=== PATIENT | female | born 1960 | race Caucasian/White ===

== ENCOUNTER → 2020-05-09 | Outpatient (CLI) | payer BC ==
[~2020-05-09] VITALS: Ht 165.1 cm; Wt 59.0 kg
[~2020-05-09] MED LIST: ADVIL200 M3 PO; ALEVE PM CAPLE1 EACH PO; BENADRYL25 MG PO; RELAFEN500 M1 PO; TYLENOL325 M1 PO
[2020-05-09 10:25] VITALS: BP 111/77
--- NOTE | 2020-05-09 10:41 | NUR ---
Pain Clinic Assessment: 1. History of Osteoarthritis: LUMBAR SPINE HIPS History of Rheumatoid Arthritis: Not Applicable 2. Height: 5 ft. 5 in. 165.1 cm. Weight: 130.0 lb. oz. 58.968 kg. Patient's BMI: 21.6 3. Vital Signs: BP: 111/77 Pulse: 86 Resp: 14 Temp: 02 Sat: 99 ECG Mon: 4. Pain Intensity: 8-9 5. Fall Risk: Dizziness: N Needs help standing or walking: N Fallen in the last 3 months: Y Fall risk comments: 6. Patient on Blood Thinner: None 7. History of Hypertension: N 8. Opioid Therapy greater than 6 weeks: N Opiate Contract Signed: 9. Risk Assessment Tool Provided: 1-LOW RISK 10. Functional Assessment Tool: 41 11. Recreational Drug Use: Never Drug Type: Tobacco Use: Never Smoker Tobacco Type: Amount or Packs/day: How Many Years: Alcohol Use: No Frequency: Quant:
--- NOTE | 2020-05-10 11:19 | HPC ---
[facility] [address] [place] [address] PAIN MANAGEMENT CONSULTATION Name: CLARICE RILEY Room #: REG GEO Vinson.#: [id number] Admission: 05/09/20 Attend Phys: Guero Jansen DO Discharge: Date of : 60 Report #: [id number] THIS REPORT FOR: cc: Darcie Arreola MD, Stephanie L. MD Johnson, James E. DO ~ DATE OF SERVICE: 05/09/2020 REFERRING PHYSICIAN: Dr. Darcie Michele MD CHIEF COMPLAINT: Axial back pain, bilateral buttock and posterolateral thigh pain. HISTORY OF PRESENT ILLNESS: As you know, the patient is a 59-year-old female who has had a longstanding history of axial back pain and bilateral buttock and posterolateral thigh pain. The patient indicates her pain began 2018 without inciting injury or trauma. She has "just been dealing with it" since that time. Her pain has begun to intensify with increasing activity. She has denied any specific injury or trauma that may have led to symptom development. She states Tylenol and Aleve are minimally effective addressing her symptoms. She reports interestingly. No symptoms during the daytime hours. Her symptoms are only at night when lying or trying to get out of bed. She states that when her symptoms are most intense, she will start feeling about 8 p.m. She reports absence of baths worked very well for pain control initially, but upon going to bed, her symptoms exacerbate. She is describing pain more of an aching sensation with intermittent exacerbations. She reports she is a side sleeper but even with this positioning on a firm mattress, she has not been doing well. She sought evaluation with orthopedic spine surgeon, Dr. Darcie Michele, who advised the patient at this time, surgical options are not necessary and that she should look towards more conservative treatment options. She has been sent for imaging as well as undergoing an ankle and toe brachial index, which apparently was normal. MRI imaging showed some arthritic changes, no significant central canal nor neural foraminal stenosis and subsequently she was referred to our clinic to discuss interventional treatment options. The patient reports her pain is continuous with intermittent exacerbations mainly while lying in bed. She states her pain is shooting, cramping and tender in description. She indicates pain level at up to 8-9/10 only at night, 1/10 during the daytime hours, up to 10/10 at its worse that is always at night. She describes the pain as worse with "lying down." She states her pain is improved with arising from bed and walking. She has been referred to our service to discuss treatment options for chronic axial back pain. PAST MEDICAL HISTORY: Insomnia and gastroesophageal reflux disease. PAST SURGICAL HISTORY: None. [address] [address] PAIN MANAGEMENT CONSULTATION Name: OSVALDOCLARICE Room #: REG Bina Silver#: [id number] Admission: 05/09/20 Attend Phys: Guero Jansen DO Discharge: Date of : 60 Report #: [id number] SOCIAL HISTORY: The patient denies tobacco, alcohol, IV or illicit drug use. She is a retired teacher. She is not working, not receiving workmen's compensation nor is she trying to obtain discrete benefits. She is unaccompanied at today's visit. REVIEW OF SYSTEMS: Positive for weight gain, fatigue and weakness, wearing corrective eyewear, frequent urination, nocturia, sexual difficulty, varicose veins, breast pain, nervousness, depression, insomnia, chronic low back pain. All other review of systems negative per 12-point review of systems other than those listed in history of present illness. Pain impact score 41 of 70 indicating moderate to severe interference of daily activities secondary to pain. ALLERGIES: CODEINE. CURRENT MEDICATIONS: Ibuprofen 200 mg every 6 hours p.r.n. pain, acetaminophen 325 mg every 6 hours p.r.n. pain, naproxen 220 mg p.r.n. pain, diphenhydramine 25 mg once a day. IMAGING: MRI lumbar spine obtained on 03/15/2020 shows T12-L1 unremarkable, L1-L2 unremarkable, L2-L3 unremarkable, L3-L4 unremarkable, L4-L5 shows mild disk space narrowing and disk desiccation, minimal ventral endplate osteophyte formation, no evidence of disk herniation or central canal stenosis, minimal Modic type 2 changes consistent with age. The left neural foramen is normal. There is mild right foraminal disk bulge and endplate osteophyte formation resulting in mild narrowing of the anterior inferior portion of the right neural foramen, thecal sac is normal. No evidence of impingement of nerve roots. L5-S1 is normal. PHYSICAL EXAMINATION: VITAL SIGNS: Blood pressure 111/77, pulse 86, respiratory rate 14 and unlabored. The patient is 99% on room air. Height 5 feet 5 inches tall, weight 130 pounds, BMI calculated 21.6. GENERAL: Well-developed, well-nourished, well-hydrated 59-year-old female, appearing her stated age. She is placing current pain score at 8-9/10. HEENT: Normocephalic, atraumatic. Pupils are round and responsive. Extraocular muscles are intact. NEUROLOGIC: Speech is fluent. The patient deemed an excellent historian. She is wearing a mask in compliance with COVID-19 regulations. LUNGS: Clear, no wheeze, rhonchi or rales. CARDIOVASCULAR: Regular. No appreciable gallop, no rub. ABDOMEN: Soft, nontender, nondistended, normoactive bowel sounds. EXTREMITIES: Show no clubbing, no cyanosis. No appreciable edema. MUSCULOSKELETAL: Lower extremity strength equal and symmetrical 5/5. Muscle [facility] [address] [place] [address] PAIN MANAGEMENT CONSULTATION Name: CALRICE RILEY Room #: REG GEO SmithJonoBarbaraJono#: [id number] Admission: 05/09/20 Attend Phys: Guero Jansen DO Discharge: Date of : 60 Report #: [id number] bulk and tone equal and symmetrical in comparing lower extremities. She is intact to light touch from L1 through S2 dermatomes. Seated straight leg raising negative. Supine straight leg raising negative. Michael's test is negative. Modified Gaenslen's positive for axial low back pain. Ankle clonus negative. Babinski is negative. Gait is normal. Deep tendon reflexes equal and symmetrical at patella and Achilles. ASSESSMENT: 1. Lumbosacral spondylosis without radiculopathy. 2. Facet arthropathy of the lumbar spine. 3. Chronic intractable pain. PLAN: 1. Based on today's physical exam and the history the patient has provided, the description the patient uses in regards to pain as well as the location of symptoms and the factors that exacerbate her symptoms themselves. It would appear she is suffering from facet arthropathy of the lumbar spine. This is confirmed with MRI imaging, which shows no central canal nor neural foraminal stenosis. There is no nerve root impingement, but there are noted arthritic changes at the L4-L5 level and that is consistent with the patient's symptoms. We discussed with the patient the treatment options we have for facet arthropathy causing chronic low back pain, the following was described as treatment options with the patient today. We discussed physical therapy, stretching exercises and core strengthening techniques. I am aware that the patient is an ex-athlete and ex-bed teacher, but formalized physical therapy could be quite beneficial. 2. We discussed adjustments in medication management. She is taking p.r.n. Advil and Tylenol, which is providing minimal benefit, a long-acting consistent nonsteroidal anti-inflammatory could be quite beneficial for treating symptoms, specifically given the minor findings on her recent imaging study. We discussed intra-articular facet injections as a treatment option. We also discussed medial branch nerve blocks and radiofrequency lesioning as treatment. We did discuss surgical options with the patient, though given the minimal findings. We would not recommend surgical procedures at this time. After reviewing the risks and benefits of all proposed treatment options, the patient chose to begin with conservative medication management. If this is unsuccessful, move him forward with medial branch blocks and radiofrequency lesioning. 2. The patient will discontinue all nonsteroidal anti-inflammatories in place, we will use nabumetone 500 mg dose 1 tab p.o. t.i.d. with meals. The patient will watch for side effects with the medication including dyspepsia, worsening of blood pressure, lower extremity edema. If she notes any side effects, discontinue immediately. The patient was advised not to take any other nonsteroidal anti-inflammatories with this therapy. If she is having side effects, contact our clinic and we will adjust the medications appropriately. We are hopeful the patient will see good benefit with this medication. She was [facility] [address] [place] [address] PAIN MANAGEMENT CONSULTATION Name: CLARICE RILEY Room #: DELMY ArreagaR.#: [id number] Admission: 05/09/20 Attend Phys: Guero Jansen DO Discharge: Date of : 60 Report #: [id number] given #90 tablets, 2 refills, essentially 3 months' worth of medication, assuming efficacy. Prescriptions provided to the patient in written form. 3. We have plans to see the patient back in followup visit in a couple of weeks. We wish to try the conservative medication route as well as some stretching exercises she was given today. We also discussed with the patient adjusting her bedtime routine obtaining either a leg contour pillow or adjusting her sleep pattern to address her axial back pain. We even discussed the possibility of placing 3 pillows into a one pillow case, placing them between the legs, which will offload some of the strain in a lateral decubitus position upon the axial back. She will make these adjustments as well as to utilize medication initially. If this is unsuccessful, then move forward with interventional treatments, specifically medial branch nerve blocks and progression towards radiofrequency lesioning. 4. The patient was given an appointment to return to our clinic in 3 weeks. We are hopeful by that time, the patient has had a chance to adjust her routine at night, specifically her sleep patterns and adjusted the pillows between the legs or obtained a leg contour pillow along with use of nabumetone. We can determine whether or not this was ineffective treatment course. If not, we will then move forward with radiofrequency lesioning or the process of radiofrequency lesioning. 5. We wish to thank Dr. Michele for the opportunity to see this patient in consultation. We will keep you apprised of response to treatment as we address facet arthropathy pain causing chronic axial back symptoms. Again, we wish to thank you for the opportunity to see this patient in consultation. <ELECTRONICALLY SIGNED> By: Guero Jansen DO 05/10/20 1119 [id number] Guero Jansen DO /francis
== END ==
LOC: PAIN 06:50
PROVIDERS: ATTEND Anesthesiology Pain Medicine
DX: M47.817 Spondylosis without myelopathy or radiculopathy, lumbosacral region (principal); M79.10 Myalgia, unspecified site; M79.652 Pain in left thigh; G89.29 Other chronic pain; Z88.8 Allergy status to other drugs, medicaments and biological substances; Z79.899 Other long term (current) drug therapy

== ENCOUNTER → 2020-06-27 | Outpatient (CLI) | payer BC ==
[~2020-06-27] VITALS: Ht 162.6 cm; Wt 64.9 kg
[~2020-06-27] MED LIST changes: +NEURONTIN300 MG PO
[2020-06-27 10:57] VITALS: BP 109/80
--- NOTE | 2020-06-27 11:13 | NUR ---
Pain Clinic Assessment: 1. History of Osteoarthritis: LUMBAR SPINE HIPS History of Rheumatoid Arthritis: Not Applicable 2. Height: 5 ft. 4 in. 162.6 cm. Weight: 143.0 lb. oz. 64.864 kg. Patient's BMI: 24.5 3. Vital Signs: BP: 109/80 Pulse: 77 Resp: 16 Temp: 02 Sat: 99 ECG Mon: 4. Pain Intensity: O DAY, PM 5-8 5. Fall Risk: Dizziness: N Needs help standing or walking: N Fallen in the last 3 months: N Fall risk comments: 6. Patient on Blood Thinner: None 7. History of Hypertension: N 8. Opioid Therapy greater than 6 weeks: N Opiate Contract Signed: 9. Risk Assessment Tool Provided: 1-LOW RISK 10. Functional Assessment Tool: 11. Recreational Drug Use: Never Drug Type: Tobacco Use: Never Smoker Tobacco Type: Amount or Packs/day: How Many Years: Alcohol Use: No Frequency: Quant:
--- NOTE | 2020-06-28 08:12 | HPC ---
[facility] [place] [address] [place] [address] PAIN MANAGEMENT CONSULTATION Name: CLARICE RILEY Room #: REG GEO Vinson.#: [id number] Admission: 06/27/20 Attend Phys: Guero Jansen DO Discharge: Date of : 60 Report #: [id number] THIS REPORT FOR: cc: Darcie Arreola MD, Stephanie L. MD Johnson, James E. DO ~ DATE OF SERVICE: 06/27/2020 CHIEF COMPLAINT: Left buttock and posterolateral thigh pain radiating to the calf. HISTORY OF PRESENT ILLNESS: As you know, the patient is a very pleasant 59-year-old female with longstanding history of low back pain, bilateral buttock and posterolateral thigh pain. She states she indicated pain began in 2018, no inciting injury or trauma. She states she has just been dealing with symptoms. She is resistant to initiate any significant treatment options today. She did ultimately tire of the symptoms she was experiencing and sought evaluation with orthopedic spine surgeon, Dr. Darcie Marin, who saw the patient and advised more conservative treatment approach. She was subsequently referred to our clinic. She was seen in consultation on 05/09/2020 where she was complaining mainly of axial back pain and upper buttock pain consistent with facet arthropathy. We trialed conservative treatment utilizing nonsteroidal anti-inflammatories as a treatment approach, as the patient did not wish to look towards interventional treatments at that time. She states she is just now returned from her vacation in [place] where she was quite active and she is now experiencing pain radiating from the left buttock down the lateral portion of the leg to the calf and periodically into the great toe. She states the symptoms awaken her in the evening hours. They are not present during the daytime for any great degree, but she experiences shooting, electrical like sensations throughout the evening hours, decreasing her capability of obtaining good sleep. She returns to discuss options for treatment. She is placing current pain score anywhere from 5-8/10. ALLERGIES: CODEINE. CURRENT MEDICATIONS: Nabumetone 500 mg 3 times a day, acetaminophen 325 mg every 6 hours p.r.n., diphenhydramine 25 mg p.o. at bedtime. SOCIAL HISTORY: The patient denies tobacco, alcohol, IV or illicit drug use. She is a retired teacher. She is not working, not receiving workmen's compensation nor is trying to obtain disability benefits. She is unaccompanied today. IMAGING: No new imaging available. PHYSICAL EXAMINATION: [facility] [address] [place] [address] PAIN MANAGEMENT CONSULTATION Name: CLARICE RILEY Room #: REG [facility]#: [id number] Admission: 06/27/20 Attend Phys: Guero Jansen DO Discharge: Date of : 60 Report #: [id number] VITAL SIGNS: Blood pressure 109/80, pulse is 77, respiratory rate 16 and unlabored. The patient is 99% on room air. Height 5 feet 4 inches tall, weight 143 pounds, BMI calculated 24.5. GENERAL: Well-developed, well-nourished, well-hydrated 59-year-old female appearing stated age, pain is rated today up to 5-8/10 depending on activity. HEENT: Normocephalic, atraumatic. Pupils are round and responsive. The patient is wearing a mask in compliance with COVID-19 regulations. EXTREMITIES: Show no clubbing, no cyanosis, no edema. MUSCULOSKELETAL: There is palpatory tenderness once again noted over the paraspinal musculature of lower lumbar spine. No spinous process tenderness. Seated straight leg raising is negative. Supine straight leg raising does cause symptoms of radicular pain radiating down the leg, which is the lateral portion of the calf. This is noted at about 70-degree angle. Ankle clonus negative. Babinski is negative, intact to light touch from L1 through S2 dermatomes. Lumbar provocation testing is met with slight increase in pain. Palpatory tenderness over the SI joint is mildly present. Provocating testing of the SI joint is met with only mild SI joint dysfunction. ASSESSMENT: 1. Possible lumbar radiculopathy. 2. Lumbosacral spondylosis with radicular component. 3. Facet arthropathy of the lumbar spine. 4. 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 PLAN: 1. Based on today's physical exam and the history the patient is providing and the distribution of symptoms she is experiencing symptoms on, it would appear her symptoms are related more to a lumbar radiculopathy. The fact that she is awoken in the evening hours with shooting and electrical like sensations radiating from the buttock area down the leg is consistent with lumbar radicular pain. She does have some palpatory tenderness over the SI joints and the distribution of her symptoms due to have similar findings as one would have with chronic SI joints pain, but the patient has no difficulty with sitting or standing nor with walking, which would be consistent with SI joint dysfunction. As for the facet arthropathy, the patient does have some symptoms with provocation testing today, but these do not appear to be the source of generating her low back, left lower extremity symptoms. After a long discussion with the patient of possible pain generators, we then discussed the treatment options. The following was discussed with the patient today. We discussed physical therapy, stretching exercises and core strengthening as a way to treat lumbar radiculopathy as well as facet arthropathy and sacroiliac joint dysfunction. We discussed medication management with adjustments in therapy to add a neuropathic medication such as amitriptyline, nortriptyline, Cymbalta, Lyrica or gabapentin to the current anti-inflammatory. We discussed lumbar epidural injection under fluoroscopic guidance to address lumbar radiculopathy and intraarticular SI joint injection to address SI joint dysfunction if [address] [address] PAIN MANAGEMENT CONSULTATION Name: OSVALDOCLARICE Room #: REG [facility].#: [id number] Admission: 06/27/20 Attend Phys: Guero Jansen DO Discharge: Date of : 60 Report #: [id number] necessary. We also discussed surgical options with the patient, but given the findings of recent imaging, I do not feel she is a surgical candidate. After reviewing the risks and benefits of all proposed treatment options, the patient chose to make adjustments in medication management. If this is unsuccessful at alleviating the electrical like sensations the patient is experiencing at night and the buttock and posterolateral thigh pain, we would then look forward to a possible lumbar epidural injection. 2. The patient was provided a prescription of gabapentin 300 mg dose. She will take 1 tab p.o. at bedtime for 3 nights. If no improvement in symptoms, no side effects of sleepiness, disorientation, confusion, mental slowing, then escalate to 600 mg, continue for 3 nights. If again no improvement in symptoms, no side effects, then increase to 900 mg. The patient was advised to watch for the side effects as listed above. If she notes no side effects, discontinue the increased dose and return to the lower dose and contact our clinic for further instructions. The patient was given a prescription of gabapentin 300 mg dose, #90, with no refills. 3. We plan to see the patient back in followup visit on an as needed basis. We will consider a lumbar epidural injection if she does not note good improvement with the changes in medication management today. Given the distribution of symptoms and the descriptors she uses, it appears to be more neuropathic in origin. We will discuss this at followup visit. We will keep you apprised of whether or not she needs to undergo this procedure. Time spent with the patient in consultation, reviewing pertinent imaging, reviewing recent studies, clinical notes and physician reports, performing physical examination with correlation of the physical findings with the medical documentation to determine treatment options is 17 minutes. Time spent in preparation for the appointment reviewing prescription monitoring system reports, reviewing previous records and proposed treatment options and reviewing current medications is 4 minutes. Time spent with preparing and standing electronic prescriptions and documentation of the visit and plan of treatment is 7 minutes. Total time spent on the patient's care 28 minutes. <ELECTRONICALLY SIGNED> By: Guero Jansen DO 06/28/20 0812 1223 [id number] Geuro Jansen DO /nt
== END ==
LOC: PAIN 06:53
PROVIDERS: ATTEND Anesthesiology Pain Medicine
DX: M47.27 Other spondylosis with radiculopathy, lumbosacral region (principal); M53.3 Sacrococcygeal disorders, not elsewhere classified; M79.652 Pain in left thigh

== ENCOUNTER → 2020-10-27 | Outpatient (CLI) | payer OTHER ==
[~2020-10-27] VITALS: Ht 177.8 cm; Wt 65.1 kg
[~2020-10-27] MED LIST changes: +NEURONTIN 300M300 M2 PO
[2020-10-27 12:34] VITALS: BP 107/76
--- NOTE | 2020-10-27 12:44 | NUR ---
Pain Clinic Assessment: 1. History of Osteoarthritis: LUMBAR SPINE HIPS History of Rheumatoid Arthritis: Not Applicable 2. Height: 5 ft. 10 in. 177.8 cm. Weight: 143.6 lb. oz. 65.136 kg. Patient's BMI: 20.6 3. Vital Signs: BP: 107/76 Pulse: 76 Resp: 16 Temp: 02 Sat: 100 ECG Mon: 4. Pain Intensity: 0 now 5. Fall Risk: Dizziness: N Needs help standing or walking: N Fallen in the last 3 months: N Fall risk comments: 6. Patient on Blood Thinner: None 7. History of Hypertension: N 8. Opioid Therapy greater than 6 weeks: N Opiate Contract Signed: 9. Risk Assessment Tool Provided: 1-LOW RISK 10. Functional Assessment Tool: 11. Recreational Drug Use: Never Drug Type: Tobacco Use: Never Smoker Tobacco Type: Amount or Packs/day: How Many Years: Alcohol Use: No Frequency: Quant:
--- NOTE | 2020-10-31 14:34 | HPC ---
[facility] [place] [address] PAIN MANAGEMENT CONSULTATION Name: CLARICE RILEY Room #: REG GEO [facility].#: [id number] Admission: 10/27/20 Attend Phys: Guero Jansen DO Discharge: Date of : 60 Report #: [id number] THIS REPORT FOR: cc: Darcie Arreola MD,Guero Collier MD, DO ~ cc: Dr. Darcie Arreola DATE OF SERVICE: 10/27/2020 CHIEF COMPLAINT: Left low back pain and posterolateral thigh pain. HISTORY OF PRESENT ILLNESS: As you know, the patient is a 60-year-old female with longstanding history of left low back pain, left lower extremity pain. This began in 2018. No inciting injury or trauma. She was seen per the request of the referring surgeon, Dr. Dracie Arreola, to address suspected lumbosacral spondylosis. We saw the patient in consultation per the request of Dr. Arreola on 05/09/2020. She was diagnosed with facet arthropathy and lumbosacral spondylosis without radiculopathy. She trialled conservative treatment. Unfortunately, the conservative treatment did not provide much in the way of improvement. She returns today in followup visit to undergo left L4-L5, L5-S1 intra-articular diagnostic facet injections under fluoroscopic guidance. The patient is placing her current pain score at around 2-3/10 depending on activity. She has had no changes in her medication management since our last visit. She has not had any new injury or trauma. ALLERGIES: CODEINE. CURRENT MEDICATIONS: Nabumetone 500 mg t.i.d., acetaminophen 325 mg once a day, diphenhydramine 25 mg p.o. at bedtime p.r.n., gabapentin 300 mg 3 times a day. SOCIAL HISTORY: The patient denies tobacco, alcohol or IV illicit drug use. She is a retired teacher. She is not working, not receiving workmen's compensation, unaccompanied today. IMAGING: No new imaging available. PHYSICAL EXAMINATION: VITAL SIGNS: Blood pressure 107/76, pulse 76, respiratory rate 16 and unlabored. The patient 100% on room air. Height 5 feet 10 inches tall, weight 143.6 pounds, BMI calculated 20.6. GENERAL: Well-developed, well-nourished, well-hydrated 60-year-old female appearing stated age, pain is rated today up to 2-3/10. HEENT: Normocephalic, atraumatic. Pupils equal, round and responsive. EXTREMITIES: Show no clubbing, no cyanosis and no edema. MUSCULOSKELETAL: Seated straight leg raising negative. Supine straight leg raising negative. Fabere's test is negative. Modified Gaenslen's positive for [address] [address] PAIN MANAGEMENT CONSULTATION Name: CLARICE RILEY Room #: REG [facility].#: [id number] Admission: 10/27/20 Attend Phys: Guero Jansen DO Discharge: Date of : 60 Report #: [id number] axial low back pain. Ankle clonus negative. Babinski is negative. Lumbar provocation testing met with increase in axial back pain located over the left facet joints at L4-L5 and L5-S1. ASSESSMENT: 1. Lumbosacral spondylosis without radicular symptoms. 2. Facet arthropathy, lumbar spine. 3. Chronic intractable pain. PLAN: 1. The patient has returned today in followup visit to address left low back pain. She has been consented and we will perform a left L4-L5, L5-S1 intra-articular diagnostic facet injection performed under fluoroscopic guidance. We have received authorization for the diagnostic facet injections. Authorization #[id number]. We have discussed with the patient the risks and the benefits of this procedure. These risks include but are not necessarily limited to bleeding, bruising, infection, worsening pain, no relief of pain, also risk of temporary or permanent muscle weakness, temporary or permanent nerve damage, possible paralysis, and . The patient states understood and wished to proceed. 2. No medication changes made at today's visit. The patient will continue current medical therapy as prior prescribed. 3. We will plan to see the patient back in followup visit in approximately one month. At that time, review the efficacy of these diagnostic facet blocks. If they do show improvement in symptoms, would consider moving forward with medial branch nerve blocks and radiofrequency lesioning. PROCEDURE NOTE: DESCRIPTION OF PROCEDURE: Left L4-L5 and L5-S1 intra-articular diagnostic facet injections under fluoroscopic guidance. This is the first procedure of the first series that the patient is undergoing. After obtaining written consent, the patient was taken back to the fluoroscopy suite and placed in a prone position with a pillow under the abdomen to decrease the lumbar lordosis and to facilitate needle entry into the facet joints. The skin overlying the lumbosacral area was prepped and draped in an aseptic fashion. AP and lateral fluoroscopic imaging was obtained. Optimal position of the fluoroscope occurred when the joint line was first visualized. The facet joints were identified radiographically directed adjacent to the superior articular process of the caudad vertebrae. The skin overlying the target site(s) of injection was anesthetized using 3 mL of 1% lidocaine. A 22-gauge 3.5-inch spinal needle with a bent tip was advanced towards the L4-L5, L5-S1 facet joints on the left side under fluoroscopic guidance. The firm posterior capsule had its characteristic feel and the needle was advanced a few [facility] [address] [place] [address] PAIN MANAGEMENT CONSULTATION Name: CLARICE RILEY Room #: REG [facility] Nadeem#: [id number] Admission: 10/27/20 Attend Phys: Guero Jansen DO Discharge: Date of : 60 Report #: [id number] additional millimeters beyond the joint capsule into the joint space, but not into the articular cartilage. After the joint space was entered and aspiration was negative for heme or CSF, 0.2 mL of Omnipaque was injected demonstrating a characteristic facet arthrogram. After negative aspiration for heme or CSF, 1.5 mL of a solution containing 1 mL, 40 mg per mL, 40 mg total triamcinolone along with 2 mL of bupivacaine 0.5% was slowly injected at each of 2 facets. The needle(s) was then removed. There were no apparent complications. The patient tolerated the procedure well and was carefully escorted to the recovery room in stable condition. The VAS was 2-3/10 before the procedure and 0/10 ten minutes after the procedure. After meeting discharge criteria, the patient was discharged home. <ELECTRONICALLY SIGNED> By: Guero Jansen DO 10/31/20 1434 [id number] Guero Jansen DO /francis
== END | disposition home or self-care (01) ==
LOC: PAIN 06:51
PROVIDERS: ATTEND Anesthesiology Pain Medicine
DX: M47.817 Spondylosis without myelopathy or radiculopathy, lumbosacral region (principal); M47.816 Spondylosis without myelopathy or radiculopathy, lumbar region; G89.29 Other chronic pain; Z79.899 Other long term (current) drug therapy; Z88.8 Allergy status to other drugs, medicaments and biological substances; Z88.6 Allergy status to analgesic agent

== ENCOUNTER → 2020-11-28 | Outpatient (CLI) | payer OTHER ==
[~2020-11-28] VITALS: Ht 162.6 cm; Wt 64.1 kg
[~2020-11-28] MED LIST changes: +ZZZQUIL25 M1 PO
[2020-11-28 10:41] VITALS: BP 106/70
--- NOTE | 2020-11-28 10:58 | NUR ---
Pain Clinic Assessment: 1. History of Osteoarthritis: LUMBAR SPINE HIPS History of Rheumatoid Arthritis: Not Applicable 2. Height: 5 ft. 4 in. 162.6 cm. Weight: 141.4 lb. oz. 64.139 kg. Patient's BMI: 24.3 3. Vital Signs: BP: 106/70 Pulse: 83 Resp: 14 Temp: 02 Sat: 100 ECG Mon: 4. Pain Intensity: 1 5. Fall Risk: Dizziness: N Needs help standing or walking: N Fallen in the last 3 months: N Fall risk comments: 6. Patient on Blood Thinner: None 7. History of Hypertension: N 8. Opioid Therapy greater than 6 weeks: N Opiate Contract Signed: 9. Risk Assessment Tool Provided: 1-LOW RISK 10. Functional Assessment Tool: 11. Recreational Drug Use: Never Drug Type: Tobacco Use: Never Smoker Tobacco Type: Amount or Packs/day: How Many Years: Alcohol Use: No Frequency: Quant:
--- NOTE | 2020-11-29 10:47 | HPC ---
[facility] [place] [address] PAIN MANAGEMENT CONSULTATION Name: CLARICE RLIEY Room #: REG GEO [facility].#: [id number] Admission: 11/28/20 Attend Phys: Guero Jansen DO Discharge: Date of : 60 Report #: [id number] THIS REPORT FOR: cc: Darcie Arreola MD,Guero Collier MD, DO ~ cc: Darcie Arreola DATE OF SERVICE: 11/28/2020 DATE OF SERVICE: 11/28/2020. CHIEF COMPLAINT: Left low back pain, left lower extremity pain with intermittent paresthesias. HISTORY OF PRESENT ILLNESS: As you know, the patient is a 60-year-old female with longstanding history of left low back pain, left lower extremity pain with paresthesias. Pain began in 2018. No inciting injury or trauma. She was referred to our clinic by her surgeon, Dr. Darcie Arreola to address a combination of lumbar facet arthropathy and lumbar radiculopathy. The patient underwent treatment for facet arthropathy initially per the request of her orthopedic surgeon. Unfortunately, the patient did not notice significant pain improvement. She continues to experience pain at a level anywhere from 2-3/10. Pain begins in low back, right, radiates down the left leg. She states the symptoms are worse at night, exacerbated with activities. She describes the pain as more of a shooting electrical-like sensation now than she had prior. She returns today to discuss options for treatment for this changing pain distribution and qualities. The patient denies new injury, new trauma or any changes in medication management since our last visit. ALLERGIES: CODEINE. CURRENT MEDICATIONS: Nabumetone, acetaminophen, diphenhydramine, gabapentin. SOCIAL HISTORY: The patient denies tobacco, alcohol or IV illicit drug use. 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 She is unaccompanied today. IMAGING: No new imaging available. PHYSICAL EXAMINATION: VITAL SIGNS: Blood pressure 106/70, pulse 83, respiratory rate 14 and unlabored. The patient 100% on room air. Height 5 feet 4 inches tall, weight 141.4 pounds, BMI calculated 24.3. GENERAL: Well-developed, well-nourished, well-hydrated 60-year-old female appearing stated age, pain is rated up to 2-3/10. HEENT: Normocephalic, atraumatic. Pupils equal, round and responsive. [address] [address] PAIN MANAGEMENT CONSULTATION Name: CLARICE RILEY Room #: REG [facility].#: [id number] Admission: 11/28/20 Attend Phys: Guero Jansen DO Discharge: Date of : 60 Report #: [id number] EXTREMITIES: Show no clubbing, no cyanosis and no edema. MUSCULOSKELETAL: Lower extremity strength equal and symmetrical 5/5. Deep tendon reflexes are equal and symmetrical at patella and Achilles. Seated straight leg raising negative. Supine straight leg raising now positive on the left at approximately 60-degree angle. Ankle clonus negative. Babinski is negative. ASSESSMENT: 1. Symptomatic lumbar radiculopathy. 2. Lumbosacral spondylosis with new onset of radiculopathy. 3. Facet arthropathy, lumbar spine. PLAN: 1. The patient has returned today in followup visit. She is now experiencing symptoms radiating from the low back to the buttock and down the left leg and more of a dermatomal distribution. The description the patient is using in regards to pain today are different than descriptors we have heard in the past. She is now using terms such as shooting and electrical-like in sensation. Pain is now radiating more dermatomal distribution than prior. We have evaluated the patient and have noted a positive seated straight leg raising on the left consistent with lumbar radiculopathy. The patient underwent intraarticular facet injections at her last visit on the left side to address the L4-L5 and L5-S1 levels. The axial back pain improved, but she continues to experience buttock and left lower extremity symptoms for which she returns today. She is wishing to address this as quickly as possible. We discussed with the patient the treatment options, she chose to undergo lumbar epidural injection under fluoroscopic guidance. 2. No medication changes made at today's visit. The patient will continue current medical therapy as prior prescribed. We recommend she continue on the gabapentin at current dosing. We will discuss rotations medication if necessary in the future. 3. The patient will plan to come tomorrow to undergo lumbar epidural injection under fluoroscopic guidance. She wishes to clear her schedule to be able to go home and rest and relax after the injection. We have made her an appointment tomorrow morning, 11/29/2020 to undergo the first in a series of epidural injections to address low back pain and left lower extremity symptoms. I will see her tomorrow morning. <ELECTRONICALLY SIGNED> By: Guero Jansen DO 11/29/20 1047 1516 0021 Guero Jansen DO /nt
== END ==
LOC: PAIN 06:41
PROVIDERS: ATTEND Anesthesiology Pain Medicine
DX: M47.27 Other spondylosis with radiculopathy, lumbosacral region (principal); Z79.899 Other long term (current) drug therapy; Z79.891 Long term (current) use of opiate analgesic

== ENCOUNTER → 2020-11-29 | Outpatient (CLI) | payer OTHER ==
[~2020-11-29] VITALS: Ht 162.6 cm; Wt 64.0 kg
[2020-11-29 09:49] VITALS: BP 105/77
--- NOTE | 2020-11-29 09:55 | NUR ---
Pain Clinic Assessment: 1. History of Osteoarthritis: LUMBAR SPINE HIPS History of Rheumatoid Arthritis: Not Applicable 2. Height: 5 ft. 4 in. 162.6 cm. Weight: 141.0 lb. oz. 63.957 kg. Patient's BMI: 24.2 3. Vital Signs: BP: 105/77 Pulse: 78 Resp: 16 Temp: 02 Sat: 99 ECG Mon: 4. Pain Intensity: 2 5. Fall Risk: Dizziness: N Needs help standing or walking: N Fallen in the last 3 months: N Fall risk comments: 6. Patient on Blood Thinner: None 7. History of Hypertension: N 8. Opioid Therapy greater than 6 weeks: N Opiate Contract Signed: 9. Risk Assessment Tool Provided: 1-LOW RISK 10. Functional Assessment Tool: 11. Recreational Drug Use: Never Drug Type: Tobacco Use: Never Smoker Tobacco Type: Amount or Packs/day: How Many Years: Alcohol Use: No Frequency: Quant:
--- NOTE | 2020-12-05 15:45 | HPC ---
[facility] [place] [address] PAIN MANAGEMENT CONSULTATION Name: CLARICE RILEY Room #: REG GEO Vinson.#: [id number] Admission: 11/29/20 Attend Phys: Guero Jansen DO Discharge: Date of : 60 Report #: [id number] THIS REPORT FOR: cc: Darcie Arreola MD,Guero Collier MD, DO ~ cc: Darcie Arreola MD DATE OF SERVICE: 11/29/2020 REFERRING PHYSICIAN: Darcie Arreola MD CHIEF COMPLAINT: Left low back pain and posterolateral thigh pain. HISTORY OF PRESENT ILLNESS: As you know, the patient is a 60-year-old female referred to our service for longstanding low back pain, left lower extremity pain, began in 2018, no inciting injury or trauma. She was seen per the request of the referring physician to address suspected facet arthropathy of lumbar spine. The patient underwent diagnostic facet injections without much way in benefit. Unfortunately, her symptoms continued. She returns today in followup visit to undergo lumbar epidural injection under fluoroscopic guidance. The patient reports pain that radiates from the low back all the way down the left leg. This awakens the patient at night, consistent with neuropathic symptoms. She returns today in followup visit for a lumbar epidural injection under fluoroscopic guidance. ALLERGIES: CODEINE. CURRENT MEDICATIONS: Nabumetone, acetaminophen, diphenhydramine, gabapentin. SOCIAL HISTORY: The patient denies tobacco, alcohol or IV or illicit drug use. She is a retired teacher, unaccompanied today. IMAGING: No new imaging available. PHYSICAL EXAMINATION: VITAL SIGNS: Blood pressure 105/77, pulse 78, respiratory rate 16 and unlabored. The patient 99% on room air. Height 5 feet 4 inches tall, weight 141 pounds, BMI calculated 24.2. GENERAL: Well-developed, well-nourished, well-hydrated 60-year-old female appearing stated age, pain is rated today at 2/10. HEENT: Normocephalic, atraumatic. Pupils equal, round and responsive. EXTREMITIES: Show no clubbing, no cyanosis. No appreciable edema. MUSCULOSKELETAL: Lower extremity strength equal and symmetrical, 5/5. Muscle bulk and tone equal and symmetrical. Seated straight leg raising negative. Supine straight leg raising is negative. TYESHA test is negative. Modified Gaenslen's positive for axial low back pain. Ankle clonus negative. [facility] [address] [place] [address] PAIN MANAGEMENT CONSULTATION Name: CLARICE RILEY Room #: REG [facility]#: [id number] Admission: 11/29/20 Attend Phys: Guero Jansen DO Discharge: Date of : 60 Report #: [id number] is negative. Gait is mildly antalgic favoring left lower extremity. ASSESSMENT: 1. Lumbar radiculopathy. 2. Lumbosacral spondylosis with radicular symptoms. 3. Facet arthropathy of lumbar spine. 4. Chronic intractable pain. PLAN: 1. The patient has returned today in followup visit to undergo lumbar epidural injection under fluoroscopic guidance to address lumbar radicular pain. The patient has undergone intraarticular facet injections for diagnostic purposes per the request of her orthopedic surgeon, which provided no benefit. Her symptoms continued to progress and now radiating down the left leg consistent more with a lumbar radiculopathy. She returns today for a lumbar epidural injection under fluoroscopic guidance. The patient has been advised risks and benefits of this procedure. These risks include but are not necessarily limited to bleeding, bruising, infection, worsening of pain, no relief of pain, also risk of temporary or permanent muscle weakness, temporary or permanent nerve damage, possible paralysis, and . The patient states understood and wished to proceed. 2. No medication changes made at today's visit. The patient will continue current medical therapy as prior prescribed. 3. We will plan to see the patient back in followup visit in 30 days. At that time, review the efficacy of today's lumbar epidural injection and determine if next in the series of epidural injections would be recommended. DESCRIPTION OF PROCEDURE: L5-S1 left paramedian epidural steroid injection under fluoroscopic guidance. This is the first procedure of the first series that the patient is undergoing. After obtaining written consent, the patient was taken back to the fluoroscopy suite, placed in a prone position with pillow under the abdomen to decrease lumbar lordosis. The skin overlying the lumbosacral area was then prepped and draped in aseptic fashion. The L5-S1 vertebral interspace was then identified by AP fluoroscopy. The skin and subcutaneous tissue overlying the target site of injection was anesthetized with 3 mL 1% lidocaine. A 20-gauge 3-1/2-inch Tuohy needle was then advanced under fluoroscopic guidance towards the epidural space using a left paramedian approach. The epidural space was identified using loss of resistance to air technique. After negative aspiration for heme or cerebrospinal fluid, a total of 1 mL of Omnipaque was injected. A lumbar epidurogram was confirmed using both AP and lateral fluoroscopy. After negative aspiration for heme or cerebrospinal fluid, 5 mL of a solution containing 2 mL 40 mg per mL 80 mg total triamcinolone along with [address] [address] PAIN MANAGEMENT CONSULTATION Name: CLARICE RILEY Room #: REG [facility]#: [id number] Admission: 11/29/20 Attend Phys: Guero Jansen DO Discharge: Date of : 60 Report #: [id number] mL of lidocaine 1% was injected in increments. Contrast spread was noted in posterior epidural space. The needle was then retracted approximately half way and needle tract flushed with 1 mL of 1% lidocaine. Needle was then removed. There were no apparent sensory or motor deficits in the lower extremity following the procedure. A sterile bandage was placed over the injection site. The heart rate, pulse, oximetry and blood pressure were continuously monitored after the procedure. There were no apparent complications. The patient tolerated the procedure well and was carefully escorted to the recovery room in stable condition. There were no apparent complications. After meeting discharge criteria, the patient was then discharged home. <ELECTRONICALLY SIGNED> By: Guero Jansen DO 12/05/20 1545 [id number] Guero Jansen DO /nt
== END | disposition home or self-care (01) ==
LOC: PAIN 07:01
PROVIDERS: ATTEND Anesthesiology Pain Medicine
DX: M47.27 Other spondylosis with radiculopathy, lumbosacral region (principal); M47.26 Other spondylosis with radiculopathy, lumbar region; G89.29 Other chronic pain; M19.90 Unspecified osteoarthritis, unspecified site; Z98.890 Other specified postprocedural states; Z79.899 Other long term (current) drug therapy; Z88.8 Allergy status to other drugs, medicaments and biological substances